=== PATIENT | female | born 1995 | race American Indian/Alaskan Native ===

== ENCOUNTER 2023-10-04 23:42 | Emergency (ER) | payer BC ==
[2023-10-05] MEDS ORDERED: diphenhydrAMINE 50 MG/ML VIAL ONE (00:06)
[2023-10-05] MEDS ORDERED: Ondansetron ODT 4 MG TAB ONE (00:07)
== END 2023-10-05 01:45 | disposition home or self-care (01) ==
LOC: ERS 23:42
DX: T78.2XXA Anaphylactic shock, unspecified, initial encounter (principal)
CPT/HCPCS: 96374; J1200; Q0162